=== PATIENT | male | born 1980 | race Caucasian/White ===

== ENCOUNTER 2019-03-14 11:30 | Emergency (ER) | payer BC ==
[~2019-03-14] VITALS: Ht 195.6 cm; Wt 120.5 kg
[2019-03-14 11:42] VITALS: TEMP 98.7
[2019-03-14 11:55] LABS: BASO # 0.1 (0.0-0.2); BASO % 0.6 % (0.0-2.0); EOS # 0.2 (0.0-0.7); EOS % 2.1 % (0-4.0); GRAN # 6.2 (1.4-6.5); GRAN % 65.5 % (42.2-75.2); HEMATOCRIT 47.3 % (42.0-52.0); HEMOGLOBIN 15.7 g/dl (13.5-18.0); LYMPH # 2.4 (1.2-3.4); LYMPH % 24.7 % (20.0-51.0); MEAN CELL VOLUME 93 fl (80.0-100.0); MEAN CORPUSCULAR HEMOGLOBIN 31 pg (27.0-31.0); MEAN CORPUSCULAR HGB CONC 33 g/dl (33.0-37.0); MEAN PLATELET VOLUME 9.8 fl (7.4-10.4); MONO # 0.7 (0.1-0.6); MONO % 6.8 % (1.7-9.3); PLATELET COUNT 219 K/mm3 (130-400); REDCELL DISTRIBUTION WIDTH-CV 12.7 % (11.5-14.5)
[2019-03-14 11:58] LABS: INR 1.2 (0.8-3.0); PROTHROMBIN TIME 13.6 SECONDS (9.7-12.8)
[2019-03-14 12:03] LABS: ALANINE AMINOTRANSFERASE 21 U/L (21-72); ALBUMIN 4.1 gm/dL (3.5-5.0); ALKALINE PHOSPHATASE 46 U/L (50-136); ANION GAP 12 mmol/L (7-16); AST,SGOT 33 U/L (15-37); BILIRUBIN,TOTAL 0.7 mg/dL (0.0-1.0); BLOOD UREA NITROGEN 15 mg/dL (9-20); CALCIUM 9.1 mg/dL (8.4-10.2); CARBON DIOXIDE 24 mmol/L (22-30); CHLORIDE 105 mmol/L (98-107); CREATININE, serum 0.95 (0.66-1.25); D-DIMER < 200.00 ng/mLDDu (200-230); GLUCOSE 165 mg/dL (74-106); LIPASE 82 U/L (23-300); POTASSIUM 3.5 mmol/L (3.4-5.0); SODIUM 141 mmol/L (137-145); TOTAL PROTEIN 7.5 gm/dL (6.4-8.2)
[2019-03-14 12:16] LABS: TROPONIN-I < 0.012 ng/mL (0.000-0.035)
[2019-03-14] MEDS ORDERED: COREG 25MG25 MG/TAB PO (12:26)
[2019-03-14] MEDS ORDERED: XARELTO20 MG PO (12:27)
[2019-03-14] MEDS ORDERED: ALDACTONE 25MG25 M1 PO (12:27)
[2019-03-14] MEDS ORDERED: KLOR-CON SPRIN10 MEQ PO (12:28)
[2019-03-14] MEDS ORDERED: LASIX 20MG TABL20 MG PO (12:28)
[2019-03-14 13:33] LABS: COLLECTION METHOD CLEAN CATCH
[2019-03-14 13:43] LABS: MUCOUS Present /lpf; PH 6 (5-8); SQUAMOUS EPITHELIAL 0-2 /hpf; URINE APPEARANCE Clear; URINE BACTERIA None Seen /hpf; URINE BILIRUBIN Negative (NEGATIVE); URINE BLOOD Negative (NEGATIVE); URINE COLOR Yellow; URINE GLUCOSE Negative (NEGATIVE); URINE KETONE Negative (NEGATIVE); URINE LEUKOCYTE ESTERASE Negative (NEGATIVE); URINE NITRATE Negative (NEGATIVE); URINE PROTEIN(semi-quant) Negative (NEGATIVE); URINE RBC 0-2 /hpf; URINE UROBILINOGEN Negative (NEGATIVE)
[2019-03-14 16:21] VITALS: BP 138/92; PULSE 78
== END 2019-03-14 16:32 | disposition home or self-care (01) ==
LOC: COL.ER 11:30
PROVIDERS: Emergency Medicine
DX: R53.81 Other malaise (principal); I50.9 Heart failure, unspecified; R42 Dizziness and giddiness; I42.9 Cardiomyopathy, unspecified; Z95.9 Presence of cardiac and vascular implant and graft, unspecified
CPT/HCPCS: J7030